=== PATIENT | female | born 1965 | race Caucasian/White ===

== ENCOUNTER 2017-06-08 19:59 | Emergency (ER) | payer SELFPAY ==
[~2017-06-08] VITALS: Ht 162.6 cm; Wt 65.0 kg
[~2017-06-08 19:59] MED LIST: CLIN150 PO; LEVO75TA3 PO
[2017-06-08 20:01] VITALS: BP 120/80; PULSE 79; RESP 29; TEMP 98.5; O2SAT 98
[2017-06-08] MEDS ORDERED: ALBU6.7H INH (21:16)
[2017-06-08] MEDS ORDERED: PRED-503 PO (21:17)
[2017-06-08] MEDS ORDERED: ZITHTAB PO (21:17)
--- NOTE | 2017-06-08 21:26 | PD ---
HPI Chief Complaint: Cold / Flu Symptoms Time Seen by Provider: 21:05 Travel History International Travel<30 days: No Contact w/Intl Traveler<30days: No Traveled to known affect area: No History of Present Illness HPI 52-year-old white female presents to MRSA department with a two-week history of cough and congestion. She states that she initially had a fever for a few days but that resolved spontaneously. She has had persistent headache, ear pain, sore throat, cough, shortness of breath, wheezing, colored sputum, posttussive emesis and general malaise. She denies any abdominal pain. No urinary symptoms. No diarrhea. She states that she normally smokes a pack of cigarettes a day but has only been able to smoke 3 cigarettes a day. Patient states that she has multiple drug allergies. She did not get the flu shot. She continues to smoke and drink alcohol. PFSH Past Medical History Diabetes: No Diminished Hearing: No Immunizations Current: Yes Thyroid Disease: Yes (HYPOTHYROID) Tetanus Vaccination: Unknown ?: Not Ovarian Cysts: Yes Tubal Ligation: Yes Past Surgical History Gynecologic Surgery: Yes (L OVARIAN CYST REMOVAL) Social History Alcohol Use: Yes (DAILY 4-5 BEERS) Tobacco Use: Yes (1PPD) Substance Use: No Allergies-Medications (Allergen,Severity, Reaction): Coded Allergies: cimetidine (Unverified Allergy, Severe, 02/11/17) egg (Unverified Allergy, Severe, 02/11/17) peanut (Unverified Allergy, Severe, 02/11/17) ranitidine (Unverified Allergy, Severe, 02/11/17) Sulfa (Sulfonamide Antibiotics) (Unverified Allergy, Intermediate, HIVES, 02/11/17) bee venom protein (honey bee) (Unverified Allergy, Intermediate, 02/11/17) cefadroxil (Unverified Allergy, Mild, SHOCK, 02/11/17) ciprofloxacin (Unverified Allergy, Mild, SHOCK, 02/11/17) codeine (Unverified Allergy, Mild, FLIP OUT, 02/11/17) doxycycline (Unverified Allergy, Mild, RASH, 02/11/17) minocycline (Unverified Allergy, Mild, RASH, 02/11/17) nitrofurantoin (Unverified Allergy, Mild, SHOCK, 02/11/17) tigecycline (Unverified Allergy, Mild, RASH, 02/11/17) Uncoded Allergies: ANTIBIOCTICS (Allergy, Severe, Anaphylaxis, 04/28/11) Reported Meds & Prescriptions Reported Meds & Active Scripts Active Zithromax Z-Wilbur (Azithromycin) 250 Mg Dspk 250 Mg PO DIRECTED 500 MG (2 tabs) day 1, then 1 tab days 2-5. Deltasone (Prednisone) 20 Mg Tab 20 Mg PO BID Proventil Hfa 6.7 GM Inh (Albuterol Sulfate) 90 Mcg/Act Aer 2 Puff INH Q4-6H PRN Cleocin (Clindamycin HCl) 150 Mg Cap 450 Mg PO Q8 10 Days Levothyroxine 75 mcg (Levothyroxine Sodium) 75 Mcg Tab 75 Mcg PO DAILY Review of Systems Except as stated in HPI: all other systems reviewed are Neg Physical Exam Narrative GENERAL: Well-developed, well-nourished in no acute distress. Nontoxic appearing. Smells of EtOH. HEAD: Normocephalic, atraumatic. EYES: Pupils equal round and reactive. Extraocular motions intact. No scleral icterus. No injection or drainage. ENT: TMs clear without erythema. The external auditory canals clear. Nose: clear . Posterior pharynx is pink and moist. No tonsillar edema or exudate. Uvula midline. Airway patent. NECK: Trachea midline.Supple, nontender, moves head freely. No central bony tenderness or spasm. CARDIOVASCULAR: Regular rate and rhythm without murmurs, gallops, or rubs. RESPIRATORY: Scattered rhonchi with fine expiratory wheeze. No Rales. GASTROINTESTINAL: Abdomen soft, non-tender, nondistended. No hepato-splenomegaly , or palpable masses. No guarding. EXTREMITIES: No clubbing, cyanosis, or edema. No joint tenderness, effusion, or edema noted. BACK: Nontender without deformity or crepitance. No flank tenderness. Data Data Last Documented VS Vital Signs Date Time Temp Pulse Resp B/P (MAP) Pulse Ox O2 Delivery O2 Flow Rate FiO2 06/08/17 20:01 98.5 79 29 120/80 (93) 98 Room Air MDM Medical Decision Making Medical Screen Exam Complete: Yes Emergency Medical Condition: Yes Medical Record Reviewed: Yes Differential Diagnosis MDM: High Differential diagnoses: Pneumonia, bronchitis, URI, asthma, RAD, legionnaire's disease, SARS, ARDS, influenza, bronchiolitis, RSV,PE,CHF Narrative Course Patient's medical record indicates that she has had Zithromax in the past. It is not on her list of allergies. Patient is advised to take the albuterol and prednisone. If her symptoms do not start to improve she may fill the prescription for antibiotics. This is bronchitis , reactive airway disease Diagnosis Primary Impression: bronchitis Additional Impression: reactive airway disease Patient Instructions: General Instructions Additional Instructions: Rest. Increase fluids. Tylenol and Advil. Robitussin-DM. Take her antibiotic if you do not start to improve with the prednisone and albuterol prednisone, and albuterol. Followup with your Dr. in one week. Return to the ER for any problems. Med/Other Pt SpecificInfo: Prescription(s) given Scripts Azithromycin (Zithromax Z-Wilbur) 250 Mg Dspk 250 MG PO DIRECTED for Infection, #1 DSPK 0 Refills 500 MG (2 tabs) day 1, then 1 tab days 2-5. Prov: Harshal Coleman MD 06/08/17 Prednisone (Deltasone) 20 Mg Tab 20 MG PO BID, #14 TAB 0 Refills Prov: Harshal Coleman MD 06/08/17 Albuterol 6.7 GM Inh (Proventil Hfa 6.7 GM Inh) 90 Mcg/Act Aer 2 PUFF INH Q4-6H Y for SHORTNESS OF BREATH, #1 INHALER 0 Refills Prov: Harshal Coleman MD 06/08/17 Disposition: 01 DISCHARGE HOME Condition: Stable Bryan Christensen Jun 08, 2017 21:26
[2017-06-08] MEDS ORDERED: predniSONE 20 MG TAB PO ONE (21:45)
== END 2017-06-08 21:41 | disposition home or self-care (01) ==
LOC: NEPD 19:59
DX: J40 Bronchitis, not specified as acute or chronic (principal); J45.909 Unspecified asthma, uncomplicated; R51 Headache; R11.10 Vomiting, unspecified; F17.210 Nicotine dependence, cigarettes, uncomplicated; E03.9 Hypothyroidism, unspecified; F17.200 Nicotine dependence, unspecified, uncomplicated; Z79.899 Other long term (current) drug therapy; Z88.5 Allergy status to narcotic agent
CPT/HCPCS: 99284; J7512

== ENCOUNTER 2017-07-23 13:31 | Emergency (ER) | payer SELFPAY ==
[~2017-07-23] VITALS: Ht 160 cm; Wt 59.5 kg
[~2017-07-23 13:31] MED LIST changes: +ALBU6.7H INH; +PRED-503 PO; +ZITHTAB PO
[2017-07-23 13:34] VITALS: BP 125/76; PULSE 114; RESP 16; TEMP 99.9; O2SAT 96
--- NOTE | 2017-07-23 14:27 | PD ---
HPI Chief Complaint: Cold / Flu Symptoms Time Seen by Provider: 14:09 Travel History International Travel<30 days: No Contact w/Intl Traveler<30days: No Traveled to known affect area: No History of Present Illness HPI 52-year-old female presents to the ED for evaluation of 6 week history of sinus congestion, runny nose, nonproductive cough. She states that she had an acute worsening of her symptoms today which prompted her visit to the ED. She states that she woke up feeling "like I've been beat up." She endorses body aches, fevers, nausea. She states that she was evaluated about 5 weeks ago and prescribed azithromycin. However she states that she did not take this medication because she has allergies to multiple antibiotics and was afraid to take them. 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 PFSH Past Medical History Hx Anticoagulant Therapy: No Diabetes: No Diminished Hearing: No Immunizations Current: Yes Thyroid Disease: Yes (HYPOTHYROID) Tetanus Vaccination: Unknown ?: Not Ovarian Cysts: Yes Tubal Ligation: Yes Past Surgical History Gynecologic Surgery: Yes (L OVARIAN CYST REMOVAL) Social History Alcohol Use: Yes (SOC) Tobacco Use: Yes (07/01 PPD) Substance Use: No Allergies-Medications (Allergen,Severity, Reaction): Coded Allergies: cimetidine (Unverified Allergy, Severe, 07/23/17) egg (Unverified Allergy, Severe, 07/23/17) peanut (Unverified Allergy, Severe, 07/23/17) ranitidine (Unverified Allergy, Severe, 07/23/17) Sulfa (Sulfonamide Antibiotics) (Unverified Allergy, Intermediate, HIVES, 07/23/17) bee venom protein (honey bee) (Unverified Allergy, Intermediate, 07/23/17) cefadroxil (Unverified Allergy, Mild, SHOCK, 07/23/17) ciprofloxacin (Unverified Allergy, Mild, SHOCK, 07/23/17) codeine (Unverified Allergy, Mild, FLIP OUT, 07/23/17) doxycycline (Unverified Allergy, Mild, RASH, 07/23/17) minocycline (Unverified Allergy, Mild, RASH, 07/23/17) nitrofurantoin (Unverified Allergy, Mild, SHOCK, 07/23/17) tigecycline (Unverified Allergy, Mild, RASH, 07/23/17) Uncoded Allergies: ANTIBIOCTICS (Allergy, Severe, Anaphylaxis, 04/28/11) Reported Meds & Prescriptions Reported Meds & Active Scripts Active Guaifenesin ER (Guaifenesin) 600 Mg Tab.er.12h 1 Tab PO Q12HR Tessalon Perles (Benzonatate) 100 Mg Cap 200 Mg PO TID PRN Prednisone 20 Mg Tab 40 Mg PO DAILY 5 Days Take 40 mg (2 tablets) daily for 5 days Review of Systems Except as stated in HPI: all other systems reviewed are Neg Physical Exam Narrative GENERAL: Well-nourished, well-developed ill-appearing white female in no acute distress. SKIN: Warm and dry. HEAD: Normocephalic. Atraumatic. EYES: No scleral icterus. No injection or drainage. PERRLA. EOMI. ENT: Pearly mckinney tympanic membranes bilaterally. Nasal mucosa is moist. Oropharynx with mild posterior erythema, no edema or exudate. Mild posterior cobblestoning. NECK: Supple, trachea midline. No JVD or lymphadenopathy. CARDIOVASCULAR: Regular rate and rhythm without murmurs, gallops, or rubs. RESPIRATORY: Breath sounds equal bilaterally. Mild end expiratory wheezing. No accessory muscle use. GASTROINTESTINAL: Abdomen soft, non-tender, nondistended. + Bowel sounds MUSCULOSKELETAL: No cyanosis, or edema. Full, active range of motion. Strength 5/5. Neurovascularly intact. BACK: Nontender without obvious deformity. No CVA tenderness. Data Data Last Documented VS Vital Signs Date Time Temp Pulse Resp B/P (MAP) Pulse Ox O2 Delivery O2 Flow Rate FiO2 07/23/17 15:59 07/23/17 15:41 99.7 93 18 98 Orders Orders Influenzae A/B Antigen (07/23/17 13:44) Iv Access Insert/Monitor (07/23/17 14:22) Sodium Chloride 0.9% Flush (Ns Flush) (07/23/17 14:30) Methylprednisolone So Succ Inj (Solumedr (07/23/17 14:30) Albuterol-Ipratropium Neb (Duoneb Neb) (07/23/17 14:30) Acetaminophen (Tylenol) (07/23/17 14:30) Sodium Chlorid 0.9% 500 Ml Inj (Ns 500 M (07/23/17 14:30) Chest, Single Ap (07/23/17 ) Complete Blood Count With Diff (07/23/17 14:30) Comprehensive Metabolic Panel (07/23/17 14:30) Ed Discharge Order (07/23/17 15:37) Labs Laboratory Tests Test 07/23/17 14:45 White Blood Count 6.0 TH/MM3 Red Blood Count 4.54 MIL/MM3 Hemoglobin 13.8 GM/DL Hematocrit 42.2 % Mean Corpuscular Volume 92.9 FL Mean Corpuscular Hemoglobin 30.5 PG Mean Corpuscular Hemoglobin Concent 32.8 % Red Cell Distribution Width 12.1 % Platelet Count 260 TH/MM3 Mean Platelet Volume 7.8 FL Neutrophils (%) (Auto) 74.4 % Lymphocytes (%) (Auto) 11.8 % Monocytes (%) (Auto) 12.4 % Eosinophils (%) (Auto) 0.7 % Basophils (%) (Auto) 0.7 % Neutrophils # (Auto) 4.6 TH/MM3 Lymphocytes # (Auto) 0.7 TH/MM3 Monocytes # (Auto) 0.7 TH/MM3 Eosinophils # (Auto) 0.0 TH/MM3 Basophils # (Auto) 0.0 TH/MM3 CBC Comment DIFF FINAL Differential Comment Blood Urea Nitrogen 15 MG/DL Creatinine 0.77 MG/DL Random Glucose 92 MG/DL Total Protein 7.9 GM/DL Albumin 3.8 GM/DL Calcium Level 8.5 MG/DL Alkaline Phosphatase 66 U/L Aspartate Amino Transf (AST/SGOT) 17 U/L Alanine Aminotransferase (ALT/SGPT) 21 U/L Total Bilirubin 0.3 MG/DL Sodium Level 136 MEQ/L Potassium Level 4.3 MEQ/L Chloride Level 105 MEQ/L Carbon Dioxide Level 23.1 MEQ/L Anion Gap 8 MEQ/L Estimat Glomerular Filtration Rate 78 ML/MIN MDM Medical Decision Making Medical Screen Exam Complete: Yes Emergency Medical Condition: Yes Differential Diagnosis Bronchitis versus pneumonia versus influenza versus other Narrative Course 52-year-old female presents to the ED for evaluation of 6 week history of sinus congestion, runny nose, nonproductive cough. She states that she had an acute worsening of her symptoms today which prompted her visit to the ED. She states that she woke up feeling "like I've been beat up." She endorses body aches, fevers, nausea. She states that she was evaluated about 5 weeks ago and prescribed azithromycin. However she states that she did not take this medication because she has allergies to multiple antibiotics and was afraid to take them. 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 99.9, heart rate 140 on presentation. Physical exam reveals an ill-appearing white female in no acute distress. ENT exam is unremarkable. She has very mild end expiratory wheezing but the exam is otherwise unremarkable. IV was established. Patient was administered Tylenol by mouth and a liter normal saline and steroids IV. Chest x-ray reveals no consolidative lung disease. No concerning abnormalities of the CBC or CMP. Flu swab negative. Suspect bronchitis. Patient was provided a spacer and educated on its use for her rescue inhaler. She is prescribed a short course of prednisone, tetanus and cough syrup and Tessalon Perles. Patient is reticent to take any antibiotics. I spent a few minutes encouraging her to take the medication as prescribed and limit her exposure to smoking environments. We discussed reasons to return to the ED. She indicated understanding of instructions and was agreeable with the plan. The patient is stable and discharged home. Diagnosis Primary Impression: Bronchitis Referrals: Primary Care Physician Patient Instructions: Acute Bronchitis (ED), General Instructions Departure Forms: Tests/Procedures, Work Release Enter return to work date: Jul 25, 2017 Additional Instructions: Rest, hydrate. Stop smoking! Take prednisone as prescribed. Begin prednisone tomorrow. Take Tessalon Perles as prescribed. Take guaifenesin expectorant as prescribed. Continue using your albuterol inhaler with the spacer as needed for cough and shortness of breath. Alternating Motrin and Tylenol every 4-6 hours as needed for continued fever and body aches. Increase handwashing frequently to avoid the spread of the virus to other family members and the community. Disinfect commonly touched surfaces such as light switches, microwaves, remote controls. Replace toothbrush at the end of this illness. Follow-up with the primary care provider this week. Return to the ED for any urgent or emergent medical condition. Med/Other Pt SpecificInfo: Prescription(s) given Scripts Guaifenesin (Guaifenesin ER) 600 Mg Tab.er.12h 1 TAB PO Q12HR for Cough, #10 Prov: Remy Goldman MD 07/23/17 Benzonatate (Tessalon Perles) 100 Mg Cap 200 MG PO TID Y for COUGH, #21 CAP 0 Refills Prov: Remy Goldman MD 07/23/17 Prednisone (Prednisone) 20 Mg Tab 40 MG PO DAILY for 5 Days, #10 TAB 0 Refills Take 40 mg (2 tablets) daily for 5 days Prov: Remy Goldman MD 07/23/17 Disposition: 01 DISCHARGE HOME Condition: Stable Judy Arzola Jul 23, 2017 14:27
[2017-07-23] MEDS ORDERED: SODIUM CHLORID 0.9% 500 ML INJ 500 ML IV ONE (14:30)
[2017-07-23] MEDS ORDERED: SODIUM CHLORIDE 0.9% FLUSH 10 ML FLUSH IVF PRN (14:30)
[2017-07-23] MEDS ORDERED: RESP: ALBUTEROL 2.5 MG/IPRATROPIUM 0.5 MG NEB (SCH) INH ONE (14:30)
[2017-07-23] MEDS ORDERED: methylPREDNISolone SOD SUCC 125 MG/2 ML VIAL IV PUSH ONE (14:30)
[2017-07-23] MEDS ORDERED: ACETAMINOPHEN 325 MG TAB PO ONE (14:30)
--- NOTE | 2017-07-23 15:02 | RADRPT ---
EXAM DATE/TIME: 07/23/2017 14:37 [facility] COMPARISON: No previous studies available for comparison. INDICATIONS : Cough. Flu like symptoms. MEDICAL HISTORY : None. SURGICAL HISTORY : None. ENCOUNTER: Initial ACUITY: 2 months PAIN SCORE: 0/10 LOCATION: Bilateral chest FINDINGS: A single view of the chest demonstrates the lungs to be symmetrically aerated without evidence of mas s, infiltrate or effusion. The cardiomediastinal contours are unremarkable. Osseous structures are intact. CONCLUSION: No acute disease. Fortunato Yap MD on July 23, 2017 at 14:59 Board Certified Radiologist. This report was verified electronically.
[2017-07-23 15:05] LABS: AUTOMATED NEUTROPHIL # 4.6 TH/MM3 (1.8-7.7); BASOPHIL % 0.7 % (0.0-2.0); EOSINOPHIL % 0.7 % (0.0-4.0); HEMATOCRIT 42.2 % (35.0-46.0); HEMOGLOBIN 13.8 GM/DL (11.6-15.3); LYMPH % 11.8 % (9.0-44.0); LYMPHOCYTE # 0.7 TH/MM3 (1.0-4.8); MEAN CELL VOLUME 92.9 FL (80.0-100.0); MEAN CORPUSCULAR HEMOGLOBIN 30.5 PG (27.0-34.0); MEAN CORPUSCULAR HGB CONC 32.8 % (32.0-36.0); MEAN PLATELET VOLUME 7.8 FL (7.0-11.0); MONO % 12.4 % (0.0-8.0); MONOCYTE # 0.7 TH/MM3 (0-0.9); NEUT % 74.4 % (16.0-70.0); PLATELET COUNT 260 TH/MM3 (150-450); RED BLOOD COUNT 4.54 MIL/MM3 (4.00-5.30); RED CELL DISTRIBUTION WIDTH 12.1 % (11.6-17.2)
[2017-07-23 15:14] LABS: CHLORIDE 105 MEQ/L (98-107); SODIUM (NA) 136 MEQ/L (136-145)
[2017-07-23 15:17] LABS: ALBUMIN 3.8 GM/DL (3.4-5.0); BICARBONATE 23.1 MEQ/L (21.0-32.0); BLOOD UREA NITROGEN 15 MG/DL (7-18); CALCIUM 8.5 MG/DL (8.5-10.1); GLUCOSE,RANDOM 92 MG/DL (74-106)
[2017-07-23 15:20] LABS: ALT (GPT) 21 U/L (10-53); AST (GOT) 17 U/L (15-37)
[2017-07-23 15:21] LABS: CREATININE 0.77 MG/DL (0.50-1.00); GLOMERULAR FILTRATION RATE 78 ML/MIN (>89)
[2017-07-23 15:22] LABS: TOTAL BILIRUBIN ADULT 0.3 MG/DL (0.2-1.0); TOTAL PROTEIN 7.9 GM/DL (6.4-8.2)
[2017-07-23 15:23] LABS: ALKALINE PHOSPHATASE 66 U/L (45-117)
[2017-07-23] MEDS ORDERED: PRED20 PO (15:31)
[2017-07-23] MEDS ORDERED: BENZ100 PO (15:31)
[2017-07-23] MEDS ORDERED: GUAI600T34 PO (15:31)
[2017-07-23 15:41] VITALS: BP 105/57; PULSE 93; RESP 18; TEMP 99.7; O2SAT 98
== END 2017-07-23 16:00 | disposition home or self-care (01) ==
LOC: PHEFT 13:31
DX: J40 Bronchitis, not specified as acute or chronic (principal); F17.200 Nicotine dependence, unspecified, uncomplicated; Z88.1 Allergy status to other antibiotic agents
CPT/HCPCS: 71045; 80053; 85025; 87804; 94664; 96361; 96374; 99284; J2930; J7040

== ENCOUNTER 2017-08-05 09:33 | Emergency (ER) | payer SELFPAY ==
[~2017-08-05] VITALS: Ht 160 cm; Wt 60.0 kg
[~2017-08-05 09:33] MED LIST changes: -ALBU6.7H INH; +BENZ100 PO; -CLIN150 PO; +GUAI600T34 PO; -LEVO75TA3 PO; -PRED-503 PO; +PRED20 PO; -ZITHTAB PO
[2017-08-05 09:47] VITALS: BP 129/73; PULSE 98; RESP 18; TEMP 98; O2SAT 97
[2017-08-05] MEDS ORDERED: DEXAMETHASONE SOD PHOS 20 MG/5 ML VIAL IM ONE (10:00)
[2017-08-05] MEDS ORDERED: ORPHENADRINE CITRATE 100 MG SUSTAINED RELEASE TAB PO ONE (10:00)
--- NOTE | 2017-08-05 10:03 | PD ---
HPI Chief Complaint: Back/ Neck Pain or Injury Time Seen by Provider: 09:54 Travel History International Travel<30 days: No Contact w/Intl Traveler<30days: No Traveled to known affect area: No History of Present Illness HPI Patient comes to the emergency department complaining of sciatica flare began 4 days ago. Patient denies any known injury, fevers, loss or change in bowel or bladder, numbness or tingling anywhere, weakness, or history of IV drug use. Patient reports feels similar to previous sciatic flares. Patient reports she tried taking an old prescription of Robaxin and Mobic from 3 years ago with no improvement of symptoms. Pain is worse with sitting. Pain radiates down her left lower extremity. Denies any low back pain, chest pain, shortness of breath , or abdominal pain. PFSH Past Medical History Hx Anticoagulant Therapy: No Diabetes: No Diminished Hearing: No Musculoskeletal: Yes (Sciatica) Immunizations Current: Yes Thyroid Disease: Yes (HYPOTHYROID) ?: Not Ovarian Cysts: Yes Tubal Ligation: Yes Past Surgical History Gynecologic Surgery: Yes (L OVARIAN CYST REMOVAL) Social History Alcohol Use: Yes (SOC) Tobacco Use: Yes (/2 PPD) Substance Use: No Allergies-Medications (Allergen,Severity, Reaction): Coded Allergies: cimetidine (Unverified Allergy, Severe, 08/05/17) egg (Unverified Allergy, Severe, 08/05/17) peanut (Unverified Allergy, Severe, 08/05/17) ranitidine (Unverified Allergy, Severe, 08/05/17) Sulfa (Sulfonamide Antibiotics) (Unverified Allergy, Intermediate, HIVES, 08/05/17) bee venom protein (honey bee) (Unverified Allergy, Intermediate, 08/05/17) cefadroxil (Unverified Allergy, Mild, SHOCK, 08/05/17) ciprofloxacin (Unverified Allergy, Mild, SHOCK, 08/05/17) codeine (Unverified Allergy, Mild, FLIP OUT, 08/05/17) doxycycline (Unverified Allergy, Mild, RASH, 08/05/17) minocycline (Unverified Allergy, Mild, RASH, 08/05/17) nitrofurantoin (Unverified Allergy, Mild, SHOCK, 08/05/17) tigecycline (Unverified Allergy, Mild, RASH, 08/05/17) Uncoded Allergies: ANTIBIOCTICS (Allergy, Severe, Anaphylaxis., 08/05/17) Reported Meds & Prescriptions Reported Meds & Active Scripts Active Medrol Dosepak (Methylprednisolone) 4 Mg Dspk 4 Mg PO DIRECTED Per Pharmacist direction Orphenadrine CR (Orphenadrine Citrate) 100 Mg Tab 100 Mg PO Q12HR PRN Review of Systems Except as stated in HPI: all other systems reviewed are Neg Physical Exam Narrative GENERAL: Well-developed, well nourished, in no acute distress, and non-ill appearing. SKIN: Focused skin assessment warm and dry. HEAD: Atraumatic. Normocephalic. EYES: Pupils equal and round. EOMI. No scleral icterus. No injection or drainage. ENT: No nasal bleeding or discharge. Mucous membranes pink and moist. NECK: Trachea midline. Supple. No nuclear rigidity. RESPIRATORY: No accessory muscle use. No respiratory distress. MUSCULOSKELETAL: No obvious deformities. No clubbing. No cyanosis. No edema. Full range of motion. No tenderness or crepitus of her lumbar spine. Patient reports tenderness to palpation her left SI joint. Straight leg test negative bilaterally. NEUROLOGICAL: Awake and alert. No obvious cranial nerve deficits. Motor grossly within normal limits. Normal speech. PSYCHIATRIC: Appropriate mood and affect; insight and judgment normal. Data Data Last Documented VS Vital Signs Date Time Temp Pulse Resp B/P (MAP) Pulse Ox O2 Delivery O2 Flow Rate FiO2 08/05/17 09:47 98.0 98 18 129/73 (91) 97 Orders Orders Dexamethasone Inj (Decadron Inj) (08/05/17 10:00) Orphenadrine Sr (Norflex Cr) (08/05/17 10:00) Ed Discharge Order (08/05/17 10:08) [facility] Medical Decision Making Medical Screen Exam Complete: Yes Emergency Medical Condition: Yes Differential Diagnosis Fracture, strain, sciatica, muscle spasm Narrative Course The patient presented complaining of back pain with radiation down leg. There was no history of recent fall or trauma. There was no evidence to support genitourinary etiology. There is also no evidence to suggest vascular pathology such as AAA dissection. No fevers or other evidence to suspect infectious processes, abscess, osteomyelitis etc. The patients neurological exam is normal with normal motor and sensory. There is no saddle paresthesias reported and no bowel or bladder incontinence or retention. I suspect the pain is mechanical in nature with sciatica. Clinical suspicion, plan of care and management was discussed with the patient. The patient was instructed to follow up with their health care provider. The patient was also instructed to return if the pain worsened, changed, or developed weakness or bowel or bladder trouble. The patient agreed with plan. Patient in no obvious distress upon re-evaluation. Patient was asked if they wanted to speak to my attending, which the patient did not wish to do at this time. Any questions/concerns in reference to patient diagnosis/condition discussed and clarified prior to patient's discharge. Reinforced sheer importance of close follow up with patient's primary physician or primary care clinic. Instructed patient to return to ED immediately, if symptoms return/ worsen. Patient showed understanding of above instructions. Further instructions and recommendations were detailed in discharge paperwork. Patient ambulated without difficulty out of ED at discharge. Diagnosis Primary Impression: Sciatica of left side Referrals: Jim Turpin MD [facility] Patient Instructions: General Instructions, Sciatica (ED) Additional Instructions: Follow-up with your primary care physician and/or orthopedic in 3-5 days for reevaluation. Take all medication as prescribed. Return to the emergency department if symptoms get worse. Med/Other Pt SpecificInfo: Prescription(s) given Scripts Methylprednisolone Dosepak (Medrol Dosepak) 4 Mg Dspk 4 MG PO DIRECTED, #1 DSPK 0 Refills Per Pharmacist direction Prov: Remy Goldman MD 08/05/17 Orphenadrine ER 12 HR (Orphenadrine CR) 100 Mg Tab 100 MG PO Q12HR Y for MUSCLE PAIN, #14 TAB 0 Refills Prov: Remy Goldman MD 08/05/17 Disposition: 01 DISCHARGE HOME Condition: Stable Arnaldo De La Fuente Aug 05, 2017 10:03
[2017-08-05] MEDS ORDERED: MEDR4PAK PO (10:08)
[2017-08-05] MEDS ORDERED: ORPH100T2 PO (10:08)
== END 2017-08-05 10:27 | disposition home or self-care (01) ==
LOC: PHEFT 09:33
DX: M54.32 Sciatica, left side (principal); E03.9 Hypothyroidism, unspecified; F17.210 Nicotine dependence, cigarettes, uncomplicated; Z88.2 Allergy status to sulfonamides; Z88.8 Allergy status to other drugs, medicaments and biological substances; Z88.1 Allergy status to other antibiotic agents; Z91.030 Bee allergy status; Z91.012 Allergy to eggs; Z88.5 Allergy status to narcotic agent; Z91.010 Allergy to peanuts
CPT/HCPCS: 96372; 99283; J1100

== ENCOUNTER 2017-08-10 23:35 | Emergency (ER) | payer SELFPAY ==
[~2017-08-10] VITALS: Ht 160 cm; Wt 59.1 kg
[2017-08-10 23:35] VITALS: BP 136/100; PULSE 88; RESP 20; TEMP 98.4; O2SAT 97
[~2017-08-10 23:35] MED LIST changes: -BENZ100 PO; -GUAI600T34 PO; +MEDR4PAK PO; +ORPH100T2 PO; -PRED20 PO
--- NOTE | 2017-08-11 00:13 | PD ---
HPI Chief Complaint: Musculoskeletal Complaint Time Seen by Provider: 00:07 Travel History International Travel<30 days: No Contact w/Intl Traveler<30days: No Traveled to known affect area: No History of Present Illness HPI 52-year-old female presents to the emergency department complaint of left low back pain and left buttock pain with radiating pain down the left lower extremity. Patient states she was seen here on Friday and given an injection and a prescription for Medrol Dosepak. Patient states symptoms have not improved. Patient denies bladder or bowel dysfunction and denies saddle anesthesia. Patient states that she denies any known injury or fall. Patient states symptoms began on Friday. Patient denies any previous chronic back pain. Patient states that she has had no fever or chills. PFSH Past Medical History Narrative Medical Sciatica hypothyroidism left oophorectomy tobacco use nursing notes reviewed Hx Anticoagulant Therapy: No Diabetes: No Diminished Hearing: No Musculoskeletal: Yes (SCITICA) Immunizations Current: Yes Thyroid Disease: Yes (HYPOTHYROID) Influenza Vaccination: No ?: Not LMP: 5 years Ovarian Cysts: Yes Tubal Ligation: Yes Past Surgical History Gynecologic Surgery: Yes (L OVARIAN CYST REMOVAL) Social History Alcohol Use: Yes (SOC) Tobacco Use: Yes (/2 PPD) Substance Use: No Allergies-Medications (Allergen,Severity, Reaction): Coded Allergies: cimetidine (Unverified Allergy, Severe, 08/10/17) egg (Unverified Allergy, Severe, 08/10/17) peanut (Unverified Allergy, Severe, 08/10/17) ranitidine (Unverified Allergy, Severe, 08/10/17) Sulfa (Sulfonamide Antibiotics) (Unverified Allergy, Intermediate, HIVES, 08/10/17) bee venom protein (honey bee) (Unverified Allergy, Intermediate, 08/10/17) cefadroxil (Unverified Allergy, Mild, SHOCK, 08/10/17) ciprofloxacin (Unverified Allergy, Mild, SHOCK, 08/10/17) codeine (Unverified Allergy, Mild, FLIP OUT, 08/10/17) doxycycline (Unverified Allergy, Mild, RASH, 08/10/17) minocycline (Unverified Allergy, Mild, RASH, 08/10/17) nitrofurantoin (Unverified Allergy, Mild, SHOCK, 08/10/17) tigecycline (Unverified Allergy, Mild, RASH, 08/10/17) Uncoded Allergies: ANTIBIOCTICS (Allergy, Severe, Anaphylaxis., 08/05/17) Reported Meds & Prescriptions Reported Meds & Active Scripts Active Medrol Dosepak (Methylprednisolone) 4 Mg Dspk 4 Mg PO DIRECTED Per Pharmacist direction Orphenadrine CR (Orphenadrine Citrate) 100 Mg Tab 100 Mg PO Q12HR PRN Review of Systems Except as stated in HPI: all other systems reviewed are Neg Physical Exam Narrative GENERAL: Well-developed well-nourished female no acute distress or respiratory distress SKIN: Warm and dry. HEAD: Normocephalic. EYES: No scleral icterus. No injection or drainage. NECK: Supple, trachea midline. No JVD or lymphadenopathy. CARDIOVASCULAR: Regular rate and rhythm without murmurs, gallops, or rubs. RESPIRATORY: Breath sounds equal bilaterally. No accessory muscle use. GASTROINTESTINAL: Abdomen soft, non-tender, nondistended. MUSCULOSKELETAL: No cyanosis, or edema. BACK: Nontender without obvious deformity. Left lower extremity straight leg raising. DTRs 2+ and equal without clonus. Sensory exam intact. No CVA tenderness. Data Data Last Documented VS Vital Signs Date Time Temp Pulse Resp B/P (MAP) Pulse Ox O2 Delivery O2 Flow Rate FiO2 08/11/17 02:30 20 08/11/17 01:43 59 181/95 (123) 100 08/10/17 23:35 98.4 Orders Orders Dexamethasone Inj (Decadron Inj) (08/11/17 00:15) Ketorolac Inj (Toradol Inj) (08/11/17 00:15) Ondansetron Odt (Zofran Odt) (08/11/17 01:30) Hydromorphone Pf Inj (Dilaudid Pf Inj) (08/11/17 01:30) MDM Medical Decision Making Medical Screen Exam Complete: Yes Emergency Medical Condition: Yes Medical Record Reviewed: Yes Differential Diagnosis Sciatica, lumbar radiculopathy, piriformis syndrome; no findings for cauda equina syndrome Narrative Course Patient given an injection of Decadron 10 mg IM and Toradol 60 mg IM Diagnosis Primary Impression: Lumbar back pain with radiculopathy affecting left lower extremity Referrals: [facility] call for appointment Primary Care Physician call for appointment Patient Instructions: General Instructions Departure Forms: Tests/Procedures, Work Release Special Instructions: no work x 3 days Additional Instructions: Rest No work 2 days Use moist heat to low back area Medications as prescribed Follow-up with primary care provider Return to the emergency department for any concerns or change in condition Med/Other Pt SpecificInfo: Prescription(s) given Scripts Ondansetron Odt (Zofran Odt) 4 Mg Tab 4 MG SL Q6HR Y for Nausea/Vomiting, #10 TAB 0 Refills Prov: Ekaterina Bowers MD 08/11/17 Oxycodone-Acetaminophen (Percocet) 5-325 mg Tab 1 TAB PO Q6H Y for PAIN, #12 TAB 0 Refills Prov: Ekaterina Bowers MD 08/11/17 Prednisone (Prednisone) 50 Mg Tab 50 MG PO DAILY for 4 Days, #4 TAB 0 Refills Prov: Ekaterina Bowers MD 08/11/17 Disposition: 01 DISCHARGE HOME Condition: Stable Ekaterina Bowers MD Aug 11, 2017 00:13
[2017-08-11] MEDS ORDERED: DEXAMETHASONE SOD PHOS 20 MG/5 ML VIAL IM ONE (00:15)
[2017-08-11] MEDS ORDERED: KETOROLAC TROMETHAMINE 60 MG/2 ML (IM) VIAL IM ONE (00:15)
[2017-08-11] MEDS ORDERED: HYDROmorphone HCL PF 2 MG/ML VIAL IM ONE (01:30)
[2017-08-11] MEDS ORDERED: ONDANSETRON ODT 4 MG TAB PO ONE (01:30)
[2017-08-11 01:43] VITALS: BP 181/95; PULSE 59; RESP 24; O2SAT 100
[2017-08-11 02:30] VITALS: RESP 20
[2017-08-11] MEDS ORDERED: PRED50 PO (02:39)
[2017-08-11] MEDS ORDERED: ZOFR4TAB3 SL (02:39)
[2017-08-11] MEDS ORDERED: PERC5TAB12 PO (02:39)
[2017-08-11 02:50] VITALS: BP 143/88
== END 2017-08-11 02:51 | disposition home or self-care (01) ==
LOC: PHED 23:35
DX: E03.9 Hypothyroidism, unspecified (principal); F17.210 Nicotine dependence, cigarettes, uncomplicated; Z88.5 Allergy status to narcotic agent; Z88.2 Allergy status to sulfonamides; M54.16 Radiculopathy, lumbar region
CPT/HCPCS: 96372; 99283; J1100; J1170; J1885